=== PATIENT | male | born 1965 | race Caucasian/White ===

== ENCOUNTER 2022-05-17 19:13 | Emergency (ER) | payer SELFPAY | END 2022-05-17 21:35 | disposition home or self-care (01) | LOC: CSHERS 19:13 | DX: M54.2 Cervicalgia (principal); I48.91 Unspecified atrial fibrillation; E11.9 Type 2 diabetes mellitus without complications; I10 Essential (primary) hypertension; W18.30XA Fall on same level, unspecified, initial encounter | CPT/HCPCS: 70450; 72125 ==